=== PATIENT | female | born 1970 | race American Indian/Alaskan Native ===

== ENCOUNTER 2017-05-06 10:07 | Outpatient (CLI) | payer OTHER ==
--- NOTE | 2017-05-06 11:30 | XRay Report ---
Left knee 2 views: History: Knee pain. Findings: Narrowing of the medial and patellofemoral compartment knee joint. Sclerotic adjacent articular surfaces with degenerative changes. Large spur anterosuperior and anteroinferior patella. Ossification along the medial femoral condyle. Impression: Degenerative changes. Findings as detailed above.
== END 2017-05-06 10:08 | disposition home or self-care (01) ==
LOC: XRAY 10:07
PROVIDERS: ATTEND Internal Medicine
DX: M17.12 Unilateral primary osteoarthritis, left knee (principal); F32.9 Major depressive disorder, single episode, unspecified; R53.1 Weakness; I10 Essential (primary) hypertension